=== PATIENT | male | born 1950 | race Caucasian/White ===

== ENCOUNTER 2016-10-07 07:47 | Emergency (ER) | payer MEDICARE, BC ==
[~2016-10-07] VITALS: Ht 180.3 cm; Wt 115.0 kg
[~2016-10-07 07:47] MED LIST: CHLO.12%30 SWISH-SPIT; CLIN150 PO; DILT240C7 PO; DOXA1 PO; LABE200T2 PO; MMW SWISH-SPIT; OXYC15TA55 PO; PERC10TA27 PO
[2016-10-07 07:59] VITALS: BP 135/67; PULSE 70; RESP 18; TEMP 98; O2SAT 97
[2016-10-07 08:00] VITALS: BP 135/67; PULSE 70; RESP 18; TEMP 98; O2SAT 97
[2016-10-07] MEDS ORDERED: OXYC30TA62 PO (08:07)
[2016-10-07] MEDS ORDERED: DILT360C12 PO (08:07)
[2016-10-07] MEDS ORDERED: ZOLP12.5 PO (08:07)
[2016-10-07] MEDS ORDERED: ASPI325T PO (08:07)
[2016-10-07] MEDS ORDERED: PROS5TAB PO (08:07)
[2016-10-07] MEDS ORDERED: LABE200T2 PO (08:07)
[2016-10-07] MEDS ORDERED: DOXA4TAB3 PO (08:07)
[2016-10-07] MEDS ORDERED: PERC10TA27 PO (08:07)
[2016-10-07] MEDS ORDERED: AMOX500C PO (08:09)
[2016-10-07] MEDS ORDERED: AUGM875T PO (08:32)
--- NOTE | 2016-10-07 08:32 | PD ---
HPI Chief Complaint: Oral / Dental Pain or Problem Time Seen by Provider: 08:25 Travel History International Travel<30 days: No Contact w/Intl Traveler<30days: No Traveled to known affect area: No History of Present Illness HPI 65-year-old male states last Thursday he went to his dentist who placed him on amoxicillin and wanted him to follow this week for dental work. He states he went to follow with him but he is out of town until . He states that he is still having pain in the infection is not getting better. He denies any fever, vomiting or other complaints other than mild facial swelling. He states he has pain medication and he is not wanting something for further pain control but he is concerned that he may be needs a stronger antibiotic. PFSH Past Medical History Hx Anticoagulant Therapy: Yes (325 MG ASPIRIN DAILY) Cardiovascular Problems: Yes (HX A-FIB, HTN) Diminished Hearing: No Hypertension: Yes Musculoskeletal: Yes (KNEE PAIN) Immunizations Current: No Past Surgical History Cholecystectomy: Yes Social History Alcohol Use: No Tobacco Use: No Substance Use: No Allergies-Medications (Allergen,Severity, Reaction): Coded Allergies: Tetracycline (Verified Allergy, Intermediate, Rash, 10/07/16) Reported Meds & Prescriptions Reported Meds & Active Scripts Active Augmentin (Amoxicillin-Clavulanate) 875-125 mg Tab 875 Mg PO BID 7 Days not for use in CrCl <30 ml/min. Reported Amoxicillin 500 Mg Cap 500 Mg PO QID Oxycontin (Oxycodone HCl) 30 Mg Tab 30 Mg PO Q8HR Percocet (Oxycodone-Acetaminophen) 10-325 mg Tab 1 Tab PO Q6H PRN Proscar (Finasteride) 5 Mg Tab 5 Mg PO DAILY Do not crush. Zolpidem ER (Zolpidem Tartrate) 12.5 Mg Tab 12.5 Mg PO HS PRN Aspirin 325 Mg Tab 325 Mg PO DAILY Labetalol (Labetalol HCl) 200 Mg Tab 200 Mg PO BID Doxazosin (Doxazosin Mesylate) 4 Mg Tab 4 Mg PO BID Diltiazem CD 24 HR 360 Mg Capcr 360 Mg PO DAILY Review of Systems Except as stated in HPI: all other systems reviewed are Neg Physical Exam Narrative GENERAL: Well-nourished, well-developed patient. SKIN: Warm and dry. HEAD: Normocephalic and atraumatic. EYES: No injection or drainage. ENT: No nasal drainage noted. No periapical abscess noted, no significant facial swelling or lymphadenopathy NECK: Supple, trachea midline. CARDIOVASCULAR: Regular rate and rhythm RESPIRATORY: No increased effort. No accessory muscle use. NEUROLOGICAL: Awake and alert. Motor and sensory grossly within normal limits. Normal speech. Data Data Last Documented VS Vital Signs Date Time Temp Pulse Resp B/P Pulse Ox O2 Delivery O2 Flow Rate FiO2 10/07/16 08:00 98.0 70 18 135/67 97 10/07/16 07:59 Room Air MDM Medical Decision Making Medical Screen Exam Complete: Yes Emergency Medical Condition: Yes Medical Record Reviewed: Yes (past history confirmed) Differential Diagnosis Dental abscess, dental caries, URI Narrative Course Lengthy discussion with patient and he agrees to changing antibiotic to Augmentin and to find a new Denist for follow-up today, given return instructions and happy with plan of care Diagnosis Primary Impression: Pain, dental Patient Instructions: General Instructions Additional Instructions: return as needed, motrin with food as needed, stop other antibiotic Med/Other Pt SpecificInfo: Prescription(s) given Scripts Amoxicillin-Clavulanate (Augmentin)875-125 mg [id number] Mg PO BID 7 Days Ref 0 not for use in CrCl <30 ml/min. Prov:Josefina Candelario MD 10/07/16 Disposition: 01 DISCHARGE HOME Condition: Stable Josefina Candelario MD Oct 07, 2016 08:32
== END 2016-10-07 08:55 | disposition home or self-care (01) ==
LOC: PHED 07:47
DX: K08.89 Other specified disorders of teeth and supporting structures (principal); I10 Essential (primary) hypertension; I48.91 Unspecified atrial fibrillation; Z79.82 Long term (current) use of aspirin
CPT/HCPCS: 99282

== ENCOUNTER 2017-03-06 09:30 | Emergency (ER) | payer MEDICARE, BC ==
[~2017-03-06] VITALS: Ht 180.3 cm; Wt 120.0 kg
[~2017-03-06 09:30] MED LIST changes: +AMOX500C PO; +ASPI325T PO; +AUGM875T PO; -CHLO.12%30 SWISH-SPIT; -CLIN150 PO; -DILT240C7 PO; +DILT360C12 PO; -DOXA1 PO; +DOXA4TAB3 PO; -MMW SWISH-SPIT; -OXYC15TA55 PO; +OXYC30TA62 PO; +PROS5TAB PO; +ZOLP12.5 PO
[2017-03-06 09:34] VITALS: BP_SYST 197; BP_SYST 204; BP_DIAS 84; BP_DIAS 86; PULSE 69; RESP 18; TEMP 97.7; O2SAT 99
[2017-03-06] MEDS ORDERED: CYCL5TAB PO (09:47)
--- NOTE | 2017-03-06 09:57 | PD ---
HPI Chief Complaint: Cold / Flu Symptoms Time Seen by Provider: 09:38 Travel History International Travel<30 days: No Contact w/Intl Traveler<30days: No Traveled to known affect area: No History of Present Illness HPI This 66-year-old male says he been sick for several days. Started with sore throat. He then developed a productive cough is not sure if she's had fevers or chills. He does feel like he has been overheated. He does not smoke cigarettes. He has a history of hypertension. He had acute renal failure several years ago but has been followed since then his kidneys were apparently okay. He has a history of hypertension and he had an episode of atrial fibrillation. He has smoked in the past but does not smoke now PFSH Past Medical History Hx Anticoagulant Therapy: Yes (325 MG ASPIRIN DAILY) Cardiovascular Problems: Yes (HX A-FIB, HTN) Diminished Hearing: No Hypertension: Yes Musculoskeletal: Yes (KNEE PAIN) Immunizations Current: No ?: Not Past Surgical History Cholecystectomy: Yes Social History Alcohol Use: No Tobacco Use: No Substance Use: No Allergies-Medications (Allergen,Severity, Reaction): Coded Allergies: doxycycline (Unverified Allergy, Intermediate, Rash, 03/06/17) minocycline (Unverified Allergy, Intermediate, Rash, 03/06/17) tigecycline (Unverified Allergy, Intermediate, Rash, 03/06/17) Reported Meds & Prescriptions Reported Meds & Active Scripts Active Reported Flexeril (Cyclobenzaprine HCl) 5 Mg Tab 5 Mg PO TID PRN Oxycontin (Oxycodone HCl) 30 Mg Tab 30 Mg PO Q8HR Percocet (Oxycodone-Acetaminophen) 10-325 mg Tab 1 Tab PO QID PRN Proscar (Finasteride) 5 Mg Tab 5 Mg PO DAILY Do not crush. Zolpidem ER (Zolpidem Tartrate) 12.5 Mg Tab 12.5 Mg PO HS PRN Aspirin 325 Mg Tab 325 Mg PO DAILY Labetalol (Labetalol HCl) 200 Mg Tab 200 Mg PO BID Doxazosin (Doxazosin Mesylate) 4 Mg Tab 8 Mg PO BID Diltiazem CD 24 HR 360 Mg Capcr 360 Mg PO DAILY Review of Systems General / Constitutional: Positive: Fever, Chills Eyes: No: Diploplia, Blurred Vision HENT: No: Headaches, Vertigo Cardiovascular: No: Chest Pain or Discomfort, Palpitations Respiratory: Positive: Cough, Wheezing Gastrointestinal: No: Nausea Genitourinary: No: Urgency, Frequency Musculoskeletal: No: Myalgias, Arthralgias Physical Exam Narrative GENERAL: Well-developed male. Blood pressures have run about 190/80 SKIN: Focused skin assessment warm/dry. HEAD: Atraumatic. Normocephalic. EYES: Pupils equal and round. No scleral icterus. No injection or drainage. ENT: No nasal bleeding or discharge. Mucous membranes pink and moist. NECK: Trachea midline. No JVD. CARDIOVASCULAR: Regular rate and rhythm. No murmur appreciated. RESPIRATORY: No accessory muscle use. Rare scattered rhonchi Breath sounds equal bilaterally. GASTROINTESTINAL: Abdomen soft, non-tender, nondistended. Hepatic and splenic margins not palpable. MUSCULOSKELETAL: No obvious deformities. No clubbing. No cyanosis. No edema. NEUROLOGICAL: Awake and alert. No obvious cranial nerve deficits. Motor grossly within normal limits. Normal speech. PSYCHIATRIC: Appropriate mood and affect; insight and judgment normal. Data Data Last Documented VS Vital Signs Date Time Temp Pulse Resp B/P (MAP) Pulse Ox O2 Delivery O2 Flow Rate FiO2 03/06/17 09:45 18 99 Room Air 03/06/17 09:34 97.7 69 197/86 (123) Orders Orders Chest, Single Ap (03/06/17 09:45) MDM Medical Decision Making Medical Screen Exam Complete: Yes Emergency Medical Condition: Yes Medical Record Reviewed: Yes Differential Diagnosis Differential includes viral syndrome, COPD, CHF Narrative Course Chest x-ray shows enlarged heart which has been present on previous x-rays. No evidence of CHF. No infiltrate Diagnosis Primary Impression: Acute bronchitis Qualified Codes: J20.9 - Acute bronchitis, unspecified Additional Instructions: Increase the labetalol 200 mg 3 times daily Scripts Amoxicillin (Amoxicillin) 500 Mg Cap 500 MG PO TID for Infection for 7 Days, CAP 0 Refills Prov: Jm Bingham MD 03/06/17 Disposition: 01 DISCHARGE HOME Condition: Stable Jm Bingham MD Mar 06, 2017 09:57
--- NOTE | 2017-03-06 10:12 | RADRPT ---
EXAM DATE/TIME: 03/06/2017 09:47 [facility] COMPARISON: No previous studies available for comparison. INDICATIONS : Cough MEDICAL HISTORY : Hypertension. SURGICAL HISTORY : None. ENCOUNTER: Initial ACUITY: 1 day PAIN SCORE: 0/10 LOCATION: Bilateral chest FINDINGS: The heart is enlarged. The pulmonary vascular pattern is normal. The lungs are clear. CONCLUSION: 1. Cardiomegaly. 2. No acute focal pulmonary infiltrate or pulmonary vascular congestion. Francisco Hanson MD on March 06, 2017 at 9:58 Board Certified Radiologist. This report was verified electronically.
[2017-03-06 10:30] VITALS: BP 180/77; PULSE 62; RESP 18; O2SAT 96
[2017-03-06] MEDS ORDERED: AMOX500C PO (10:30)
== END 2017-03-06 10:35 | disposition home or self-care (01) ==
LOC: PHED 09:30
DX: J20.9 Acute bronchitis, unspecified (principal); I10 Essential (primary) hypertension; I48.91 Unspecified atrial fibrillation
CPT/HCPCS: 71010; 99283